=== PATIENT | female | born 1975 | race Caucasian/White ===

== ENCOUNTER → 2016-03-24 | Outpatient (CLI) | payer OTHER ==
[2016-03-24 08:18] LABS: BASO # 0.1 x10^3/uL (0.0-0.2); BASO % 1 % (0-3); EOS % 9 % (0-3); HEMATOCRIT 40.5 % (36.0-47.0); HEMOGLOBIN 13.4 g/dL (12.0-15.5); LYMPH # 1.7 x10^3/uL (1.0-4.8); LYMPH % 26 % (24-48); MEAN CORPUSCULAR HEMOGLOBIN 31 pg (25-35); MEAN CORPUSCULAR HGB CONC 33 g/dL (31-37); MEAN CORPUSCULAR VOLUME 92 fL (79-100); MONO % 6 % (0-9); NEUT % 58 % (31-73); PLATELET COUNT 244 x10^3/uL (140-400); RED CELL DISTRIBUTION WIDTH 12.9 % (11.5-14.5); WHITE BLOOD COUNT 6.8 x10^3/uL (4.0-11.0)
[2016-03-24 08:48] LABS: CALCIUM 9.1 mg/dL (8.5-10.1); CREATININE 0.8 mg/dL (0.6-1.0); GFR 78.3; POTASSIUM 3.9 mmol/L (3.5-5.1)
== END | disposition home or self-care (01) ==
LOC: LAB 07:50
PROVIDERS: ATTEND Internal Medicine
DX: Z13.220 Encounter for screening for lipoid disorders (principal); N92.0 Excessive and frequent menstruation with regular cycle
CPT/HCPCS: 36415; 80048; 80061; 83036; 84443; 85027

== ENCOUNTER 2016-08-05 12:10 | Emergency (ER) | payer OTHER ==
[~2016-08-05] VITALS: Ht 162.6 cm; Wt 58.1 kg
[2016-08-05 12:30] VITALS: BP 109/69
--- NOTE | 2016-08-05 12:36 | PHYS DOC ---
Adult General Chief Complaint Chief Complaint: PAIN ON URINATION [facility] HPI Patient is a 41 year old female with no significant medical history who presents with urinary frequency since yesterday as well as intermittent hematuria since yesterday. Patient denies any fever. Denies any history of kidney stones. Denies any abdominal pain nausea or vomiting. Review of Systems Review of Systems Constitutional: Denies fever or chills [] Eyes: Denies change in visual acuity, redness, or eye pain [] HENT: Denies nasal congestion or sore throat [] Respiratory: Denies cough or shortness of breath [] Cardiovascular: No additional information not addressed in HPI [] GI: Denies abdominal pain, nausea, vomiting, bloody stools or diarrhea [] : Urinary frequency Musculoskeletal: Denies back pain or joint pain [] Integument: Denies rash or skin lesions [] Neurologic: Denies headache, focal weakness or sensory changes [] Endocrine: Denies polyuria or polydipsia [] Allergies Allergies Allergies Coded Allergies Type Severity Reaction Last Updated Verified Penicillins Allergy Mild Rash 03/24/16 Yes Physical Exam Physical Exam Constitutional: Well developed, well nourished, no acute distress, non-toxic appearance. [] HENT: Normocephalic, atraumatic, bilateral external ears normal, oropharynx moist, no oral exudates, nose normal. [] Eyes: PERRLA, EOMI, conjunctiva normal, no discharge. [] Neck: Normal range of motion, no tenderness, supple, no stridor. [] Cardiovascular:Heart rate regular rhythm, no murmur [] Lungs & Thorax: Bilateral breath sounds clear to auscultation [] Abdomen: Bowel sounds normal, soft, no tenderness, no masses, no pulsatile masses. [] Skin: Warm, dry, no erythema, no rash. [] Back: No tenderness, no CVA tenderness. [] Extremities: No tenderness, no cyanosis, no clubbing, ROM intact, no edema. [] Neurologic: Alert and oriented X 3, normal motor function, normal sensory function, no focal deficits noted. [] Psychologic: Affect normal, judgement normal, mood normal. [] Current Patient Data Vital Signs Vital Signs Date Time Temp Pulse Resp B/P (MAP) Pulse Ox O2 Delivery O2 Flow Rate FiO2 08/05/16 12:30 97.9 69 18 100 Room Air 97.9 Lab Values Laboratory Tests Test 08/05/16 11:35 08/05/16 12:20 POC Urine HCG, Qualitative Hcg negative (Negative) Urine Collection Type Void Urine Color Yellow Urine Clarity Clear Urine pH 5.5 Urine Specific [place] 1.010 Urine Protein Negative mg/dL (NEG-TRACE) Urine Glucose (UA) Negative mg/dL (NEG) Urine Ketones (Stick) Negative mg/dL (NEG) Urine Blood Small (NEG) Urine Nitrite Negative (NEG) Urine Bilirubin Negative (NEG) Urine Urobilinogen Dipstick 0.2 mg/dL (0.2 mg/dL) Urine Leukocyte Esterase Moderate (NEG) Urine RBC 3-5 /HPF (0-2) Urine WBC 11-20 /HPF (0-4) Urine Squamous Epithelial Cells Few /LPF Urine Bacteria Many /HPF (0-FEW) EKG EKG [] Radiology/Procedures Radiology/Procedures [] Course & Med Decision Making Course & Med Decision Making Pertinent Labs and Imaging studies reviewed. (See chart for details) This is a 41-year-old female patient who presents today with urinary frequency and intermittent hematuria since yesterday. No history of kidney stones. No flank pain. Negative urine hCG, urine positive for UTI. Discharged with Bactrim for 7 days. Instructed to push fluids. Follow-up with PCP in 1-2 weeks. Dragon Disclaimer Dragon Disclaimer This electronic medical record was generated, in whole or in part, using a voice recognition dictation system. Departure Departure Impression: Primary Impression: Urinary tract infection Disposition: 01 HOME, SELF-CARE Condition: STABLE Referrals: NHI THAKKAR MD (PCP) Follow-up with your doctor in 1-2 weeks Patient Instructions: Urinary Tract Infection Additional Instructions: You were seen for urinary tract infection and we'll put on antibiotics. Ensure you complete them. Push fluids. Take Tylenol/Motrin for pain or fever. Come back to the ED if symptoms worsen. Scripts Sulfamethoxazole/Trimethoprim (BACTRIM 400-80 MG TABLET) 1 Each Tablet 1 TAB PO BID, #14 TAB Prov: MARISELA OLIVEIRA APRN 08/05/16 Problem Qualifiers Primary Impression: Urinary tract infection Urinary tract infection type: acute cystitis Hematuria presence: with hematuria Qualified Codes: N30.01 - Acute cystitis with hematuria MARISELA OLIVEIRA APRN Aug 05, 2016 12:36
[2016-08-05 12:39] LABS: BILIRUBIN,URINE NEGATIVE (NEG); GLUCOSE,URINE NEGATIVE (NEG); NITRITE,URINE NEGATIVE (NEG); PH,URINE 5.5; PROTEIN,URINE NEGATIVE (NEG-TRACE); UROBILINOGEN,URINE 0.2 mg/dL (0.2 mg/dL)
[2016-08-05 12:47] LABS: BACTERIA,URINE MANY /HPF (0-FEW); SQUAMOUS EPITHELIAL CELL,UR FEW /LPF
[2016-08-05] MEDS ORDERED: SULF1TAB23 PO (12:53)
== END 2016-08-05 12:55 | disposition home or self-care (01) ==
LOC: ER 12:10
DX: N39.0 Urinary tract infection, site not specified (principal); Z88.0 Allergy status to penicillin
CPT/HCPCS: 81001; 81025; 99283

== ENCOUNTER → 2016-10-15 | Outpatient (CLI) | payer OTHER ==
[~2016-10-15] MED LIST: SULF1TAB23 PO
[2016-10-15 14:44] LABS: BILIRUBIN,URINE NEGATIVE (NEG); GLUCOSE,URINE NEGATIVE (NEG); NITRITE,URINE NEGATIVE (NEG); PROTEIN,URINE NEGATIVE (NEG-TRACE); UROBILINOGEN,URINE 0.2 mg/dL (0.2 mg/dL)
[2016-10-15 14:53] LABS: BACTERIA,URINE FEW /HPF (0-FEW); RBC,URINE OCC /HPF (0-2); SQUAMOUS EPITHELIAL CELL,UR FEW /LPF; WBC,URINE OCC /HPF (0-4)
== END | disposition home or self-care (01) ==
LOC: LAB 13:09
PROVIDERS: ATTEND Internal Medicine
DX: R35.0 Frequency of micturition (principal)
CPT/HCPCS: 81001; 87086

== ENCOUNTER 2016-10-19 13:18 | Emergency (ER) | payer OTHER ==
--- NOTE | 2016-10-19 13:55 | PHYS DOC ---
Past Medical History Past Medical History: No Pertinent History Past Surgical History: No Surgical History Alcohol Use: Rarely Drug Use: None Adult General Chief Complaint Chief Complaint: PELVIC PAIN HPI HPI Patient is a 41 year old female presenting to the emergency department for evaluation of right pelvic pain in addition to vaginal bleeding that has been going on for the past several days. Patient says that she has some blood when she wipes but no vaginal discharge noted. She denies any dysuria hematuria fevers chills nausea vomiting or other systemic symptoms. Patient says that she has had no abdominal surgeries. She is in no obvious distress with normal vital signs. Review of Systems Review of Systems Constitutional: Denies fever or chills [] Respiratory: Denies cough or shortness of breath [] Cardiovascular: No additional information not addressed in HPI [] GI: + abdominal pain, No nausea, vomiting : Denies dysuria or hematuria [] Musculoskeletal: Denies back pain or joint pain [] Neurologic: Denies headache, focal weakness or sensory changes [] Current Medications Current Medications Current Medications Medications (Trade) Dose Ordered Sig/Tyrel Start Time Stop Time Status Last Admin Dose Admin Azithromycin (Zithromax) 1,000 mg 1X ONCE 10/19/16 14:15 10/19/16 14:16 DC 10/19/16 14:11 1,000 MG Allergies Allergies Allergies Coded Allergies Type Severity Reaction Last Updated Verified Penicillins Allergy Intermediate Rash 10/19/16 Yes Physical Exam Physical Exam Constitutional: Well developed, well nourished, no acute distress, non-toxic appearance. [] Cardiovascular:Heart rate regular rhythm, no murmur [] Lungs & Thorax: Bilateral breath sounds clear to auscultation [] Abdomen: Bowel sounds normal, soft, no tenderness over McBurney's, positive right adnexal tenderness, no masses, no pulsatile masses. PROGRESS WORKER: Erythematous cervix looks irritated but there is no purulent drainage. She does have some right adnexal and cervical motion tenderness. Skin: Warm, dry, no erythema, no rash. [] Back: No tenderness, no CVA tenderness. [] Extremities: No tenderness, no cyanosis, no clubbing, ROM intact, no edema. [] Neurologic: Alert and oriented X 3, normal motor function, normal sensory function, no focal deficits noted. [] Current Patient Data Vital Signs Vital Signs Date Time Temp Pulse Resp B/P (MAP) Pulse Ox O2 Delivery O2 Flow Rate FiO2 10/19/16 14:55 74 108/77 (87) 100 Room Air 10/19/16 13:49 98.0 16 98.0 Lab Values Laboratory Tests Test 10/19/16 12:44 10/19/16 13:36 POC Urine HCG, Qualitative Hcg negative (Negative) Urine Collection Type Unknown Urine Color Yellow Urine Clarity Clear Urine pH 6.5 Urine Specific [place] <=1.005 Urine Protein Negative mg/dL (NEG-TRACE) Urine Glucose (UA) Negative mg/dL (NEG) Urine Ketones (Stick) Negative mg/dL (NEG) Urine Blood Negative (NEG) Urine Nitrite Negative (NEG) Urine Bilirubin Negative (NEG) Urine Urobilinogen Dipstick 0.2 mg/dL (0.2 mg/dL) Urine Leukocyte Esterase Negative (NEG) Urine RBC 0 /HPF (0-2) Urine WBC 0 /HPF (0-4) Urine Squamous Epithelial Cells Few /LPF Urine Bacteria 0 /HPF (0-FEW) Microbiology 10/19/16 Wet Prep - Final, Complete EKG EKG [] Radiology/Procedures Radiology/Procedures Ultrasound pelvis 10/19/2016 at 1429 hours Indication: Right pelvic pain Comparison: None available Technique: Sonographic imaging of the pelvis was performed utilizing transabdominal and transvaginal imaging. Color Doppler, spectral waveform analysis and grayscale ultrasound imaging was performed. Findings: The uterus measures 7.2 x 4.2 x 5.7 cm. Endometrium is within normal limits measuring 9 mm. There is a posterior right uterine fibroid measuring 1.5 x 1.3 x 1.6 cm. Nabothian cysts are noted in the cervix. Right ovary measures 2.1 x 2.0 x 3.3 cm. Left ovary measures 3.2 x 2.0 x 2.8 cm. Perfusion is noted to the ovaries bilaterally the time of imaging utilizing grayscale and spectral waveform analysis. Trace amount of free fluid is noted by the left ovary and in the cul-de-sac, likely physiologic. Impression: 1. There is an intramural posterior right uterine fibroid measuring 1.5 x 1.3 x 1.6 cm. 2. Ovaries are normal in appearance with perfusion noted bilaterally with some of imaging. 3. Small amount of free fluid identified adjacent to the left ovary and in the cul-de-sac, likely physiologic. DICTATED and SIGNED BY: SUSAN RODRIGUEZ MD DATE: 10/19/16 2520 Course & Med Decision Making Course & Med Decision Making Do pelvic exam check swabs ultrasound and reassess. On exam she has a cervicitis. Her ultrasound is rather unremarkable except for a fibroid. I gave her a dose of Zithromax here and will have her follow with the PROGRESS WORKER and have her come back with any worsening pain fevers vomiting or other general concerns. Patient aware and agreeable with plan and verbalized understanding of the above instructions. Dragon Disclaimer Dragon Disclaimer This electronic medical record was generated, in whole or in part, using a voice recognition dictation system. Departure Departure Impression: Primary Impression: Cervicitis Disposition: HOME, SELF-CARE Condition: GOOD Referrals: JAYLA SHELLEY Jr, MD Patient Instructions: Cervicitis Additional Instructions: CONTINUE TAKING IBUPROFEN FOR PAIN. THE NORCO IS FOR BREAKTHROUGH PAIN. Scripts Ondansetron (ZOFRAN ODT) 4 Mg Tab.rapdis 4 MG PO BID Y for NAUSEA/VOMITING, #10 TAB Prov: ADOLFO KOCH DO 10/19/16 Hydrocodone/Apap 5-325 (NORCO 5-325 TABLET) 1 Each Tablet 1 TAB PO PRN Q6HRS Y for PAIN, #10 TAB 0 Refills Prov: ADOLFO KOCH DO 10/19/16 ADOLFO KOCH DO Oct 19, 2016 13:55
[2016-10-19 13:58] LABS: BILIRUBIN,URINE NEGATIVE (NEG); GLUCOSE,URINE NEGATIVE (NEG); NITRITE,URINE NEGATIVE (NEG); PH,URINE 6.5; PROTEIN,URINE NEGATIVE (NEG-TRACE); UROBILINOGEN,URINE 0.2 mg/dL (0.2 mg/dL)
[2016-10-19 14:14] LABS: BACTERIA,URINE 0 /HPF (0-FEW); RBC,URINE 0 /HPF (0-2); SQUAMOUS EPITHELIAL CELL,UR FEW /LPF; WBC,URINE 0 /HPF (0-4)
[2016-10-19] MEDS ORDERED: AZITHROMYCIN 250 MG TABLET. PO ONE (14:15)
[2016-10-19 14:55] VITALS: BP 108/77
--- NOTE | 2016-10-19 15:02 | RAD ---
Ultrasound pelvis 10/19/2016 at 1429 hours Indication: Right pelvic pain Comparison: None available Technique: Sonographic imaging of the pelvis was performed utilizing transabdominal and transvaginal imaging. Color Doppler, spectral waveform analysis and grayscale ultrasound imaging was performed. Findings: The uterus measures 7.2 x 4.2 x 5.7 cm. Endometrium is within normal limits measuring 9 mm. There is a posterior right uterine fibroid measuring 1.5 x 1.3 x 1.6 cm. Nabothian cysts are noted in the cervix. Right ovary measures 2.1 x 2.0 x 3.3 cm. Left ovary measures 3.2 x 2.0 x 2.8 cm. Perfusion is noted to the ovaries bilaterally the time of imaging utilizing grayscale and spectral waveform analysis. Trace amount of free fluid is noted by the left ovary and in the cul-de-sac, likely physiologic. Impression: 1. There is an intramural posterior right uterine fibroid measuring 1.5 x 1.3 x 1.6 cm. 2. Ovaries are normal in appearance with perfusion noted bilaterally with some of imaging. 3. Small amount of free fluid identified adjacent to the left ovary and in the cul-de-sac, likely physiologic.
[2016-10-19] MEDS ORDERED: HYDR-971 PO (15:11)
[2016-10-19] MEDS ORDERED: ONDA4TAB10 PO (15:11)
== END 2016-10-19 15:23 | disposition home or self-care (01) ==
LOC: ER 13:18
DX: N72 Inflammatory disease of cervix uteri (principal); Z88.0 Allergy status to penicillin
CPT/HCPCS: 76830; 76856; 81001; 81025; 87491; 87591; 99285; Q0111; Q0144

== ENCOUNTER → 2018-04-26 | Outpatient (CLI) | payer OTHER ==
[~2018-04-26] MED LIST changes: +HYDR-3164 PO; +ONDA4TAB10 PO
--- NOTE | 2018-04-26 11:19 | KCIC ---
ANKLE RIGHT 3V History: Chronic right heel pain, no known injury Comparison: None. Findings: 3 views of the right ankle are submitted. No acute osseous abnormality is identified by radiographs. Tibiotalar joint space is preserved. There is small dorsal calcaneal enthesophyte. Impression: 1. No acute osseous abnormality is identified. There is small dorsal calcaneal enthesophyte. Electronically signed by: John Gunn MD (04/26/2018 11:16 AM) [id number]
--- NOTE | 2018-04-26 11:31 | KCIC ---
3 view study of the right foot Clinical indications: Chronic right heel pain. No recent injury. FINDINGS: Bipartite medial sesamoid bone is seen which is a normal developmental variant. No acute fracture or dislocation or osteolytic process is seen. No plantar spur of the calcaneus is seen. Small dorsal spur of the calcaneus is seen at the attachment of the Achilles tendon. IMPRESSION: No acute fracture. Electronically signed by: Christopher Garrison MD (04/26/2018 11:28 AM) [id number]
== END | disposition home or self-care (01) ==
LOC: KCIC 09:18
PROVIDERS: ATTEND Physician Assistant Medical
DX: M77.31 Calcaneal spur, right foot (principal); G89.29 Other chronic pain
CPT/HCPCS: 73610; 73630

== ENCOUNTER → 2018-06-15 | Outpatient (CLI) | payer OTHER ==
--- NOTE | 2018-06-15 16:03 | KCIC ---
Bilateral digital screening mammograms: Reason for examination: Routine baseline screening. Interpretation was made with the benefit of CAD. The skin and nipples show no abnormalities. No abnormal axillary lymph nodes are seen. The breast parenchyma is extremely dense. (Breast density: Category D) There are no dominant masses, suspicious calcifications or architectural distortion. A few coarse benign calcifications are present. Impression: No evidence of malignancy. Recommend routine screening. Your patient's mammogram demonstrates that she has dense breast tissue (breast density category C or D), which could hide abnormalities, and if she has other risk factors for breast cancer that have been identified, she might benefit from supplemental screening tests that may be suggested by you as her ordering physician. Dense breast tissue, in and of itself, is a relatively common condition. Therefore, this information is not provided to cause undue concern, but rather to raise your awareness and to promote discussion with your patient regarding the presence of other risk factors, in addition to dense breast tissue. Your patient's mammography results will be sent to her. BI-RADS Category 2: Benign. "Our facility is accredited by the [employer] Mammography Program." This patient's information has been entered into a reminder system for the patient to be notified with the results of her examination and a target date for the next mammogram. Electronically signed by: Rosa Meneses MD (06/15/2018 4:00 PM) [id number]
--- NOTE | 2018-06-15 16:23 | KCIC ---
Examination: Ultrasound pelvis HISTORY: History of menorrhagia. COMPARISON: 10/19/2016 FINDINGS: The uterus measures 7. 925.2 x 6.4 cm. Endometrium measures 15 mm in thickness. There is a 2.9 cm heterogeneous echogenicity identified in the uterus likely fibroid increased in size compared to prior exam. The right ovary measures 2.1 x 1.5 x 2.8 cm. The left ovary measures 3.1 x 1.9 x 2.1 cm. There is a complex appearing nodule identified in the left ovary measuring 1.2 cm. There is a exophytic cystic structure identified in the left ovary measuring 1 cm. A nabothian cyst identified in the cervix. The uterus appears retroverted. Mild prominent appearing vascularity of the pelvis probably mild pelvic varices. Complex appearing free fluid identified in the cul-de-sac IMPRESSION: 1. 2.9 cm fibroid identified in the uterus which has increased in size compared to prior exam. 2. Thickened appearance of the endometrium. Differential includes endometrial hyperplasia however malignancy is not completely excluded however no obvious increased vascularity identified in the endometrium. 3. Complex appearing fluid identified in the cul-de-sac could be of fluid containing debris. 4. 1.2 cm complex nodule or a collapsed cyst or collapsed hemorrhagic cyst identified in the left ovary with possible 1 cm exophytic left ovarian cyst. MRI pelvis can be considered. 5. Mild prominent appearing vascularity of the pelvis probably mild pelvic varices. Electronically signed by: Conner Velásquez MD (06/15/2018 4:20 PM) [id number]
== END | disposition home or self-care (01) ==
LOC: KCIC US 12:53
PROVIDERS: ATTEND Obstetrics & Gynecology
DX: Z13.1 Encounter for screening for diabetes mellitus (principal); R92.8 Other abnormal and inconclusive findings on diagnostic imaging of breast; D25.9 Leiomyoma of uterus, unspecified; N88.8 Other specified noninflammatory disorders of cervix uteri
CPT/HCPCS: 76830; 76856; 77067